=== PATIENT | female | born 1985 | race Caucasian/White ===

== ENCOUNTER → 2017-11-30 | Outpatient (CLI) | payer BC ==
--- NOTE | 2017-11-30 14:59 | USB ---
Reason for exam: clinical finding. Indicated problem(s): pain in the left breast. US Breast LT Left complete breast ultrasound includes all four quadrants, the retroareolar region and axilla. Finding demonstrates no cystic or solid lesion seen. These results were verbally communicated with the patient and result sheet given to the patient on 11/30/17. ASSESSMENT: Negative, BI-RAD 1 RECOMMENDATION: Clinical management of the left breast. Manage patient on a clinical basis.
== END | disposition home or self-care (01) ==
LOC: RADUSWWP 10:04
PROVIDERS: ATTEND Obstetrics & Gynecology
DX: N64.4 Mastodynia (principal)

== ENCOUNTER → 2018-11-12 | Outpatient (CLI) | payer BC ==
--- NOTE | 2018-11-12 11:59 | USB ---
Reason for exam: clinical finding. Indicated problem(s): palpable abnormality in the left breast. Physical Findings: Nurse did not find any significant physical abnormalities on exam. US Breast LT Left complete breast ultrasound includes all four quadrants, the retroareolar region and axilla. Finding demonstrates no cystic or solid lesion seen. No suspicious sonographic finding. These results were verbally communicated with the patient and result sheet given to the patient on 11/12/18. ASSESSMENT: Negative, BI-RAD 1 RECOMMENDATION: Routine screening mammogram of both breasts at age 40. (or sooner if clinically indicated)
== END | disposition home or self-care (01) ==
LOC: RADUSWWP 10:03
PROVIDERS: ATTEND Family Medicine
DX: N60.09 Solitary cyst of unspecified breast (principal)

== ENCOUNTER → 2019-11-05 | Outpatient (CLI) | payer BC ==
--- NOTE | 2019-11-05 07:54 | US ---
EXAMINATION TYPE: US pelvic complete DATE OF EXAM: 11/05/2019 COMPARISON: NONE CLINICAL HISTORY: R19.00 INTRA ABDOMINAL AND PELVIC SWELLING, MASS AND LUMP. increase in vaginal disc harge, TECHNIQUE: TA. Transabdominal sonographic images of the pelvis were acquired. Date of LMP: 10/25/2019 EXAM MEASUREMENTS: Uterus: 10.4 x 4.2 x 4.6 cm Endometrial Stripe: 0.8 cm Right Ovary: 2.9 x 2.1 x 1.4 cm Left Ovary: 3.1 x 2.4 x 2.2 cm 1. Uterus: Anteverted wnl 2. Endometrium: wnl 3. Right Ovary: wnl 4. Left Ovary: wnl 5. Bilateral Adnexa: wnl 6. Posterior cul-de-sac: wnl IMPRESSION: No distinct abnormality appreciated.
--- NOTE | 2019-11-05 07:55 | US ---
EXAMINATION TYPE: US abdomen complete DATE OF EXAM: 11/05/2019 COMPARISON: NONE CLINICAL HISTORY: pain. complaints of increased vaginal discharge, order states abd pain and swelling but patient has no complaints of that. EXAM MEASUREMENTS: Liver Length: 16.0 cm Gallbladder Wall: 0.2 cm CBD: 0.3 cm Spleen: 11.8 cm Right Kidney: 10.6 x 4.7 x 4.2 cm Left Kidney: 10.7 x 4.5 x 4.3 cm Pancreas: wnl Liver: wnl Gallbladder: wnl Evidence for sonographic Irene's sign: no CBD: wnl Spleen: wnl Right Kidney: wnl Left Kidney: wnl Upper IVC: wnl Abd Aorta: wnl The liver is homogenous. The intrahepatic portion of the IVC and proximal abdominal aorta are within normal limits. There is no evidence of cholelithiasis. Common bile duct is unremarkable. The visu alized portions of the pancreas are homogenous. The spleen is unremarkable. Kidneys are symmetric a nd free of hydronephrosis. No renal lesions are seen. IMPRESSION: No distinct abnormality appreciated.
== END | disposition home or self-care (01) ==
LOC: RADUSWWP 07:02
PROVIDERS: ATTEND Family Medicine
DX: R19.00 Intra-abdominal and pelvic swelling, mass and lump, unspecified site (principal)
CPT/HCPCS: 76700; 76856

== ENCOUNTER → 2021-03-17 | Outpatient (CLI) | payer OTHER ==
--- NOTE | 2021-03-17 07:58 | MR ---
EXAMINATION TYPE: MR lumbar spine wo con DATE OF EXAM: 03/17/2021 COMPARISON: NONE HISTORY: Low back pain, pain for 3 years per patient. TECHNIQUE: Multiplanar, multisequence imaging of the lumbar spine is performed without IV contrast. FINDINGS: Sagittal images of the lumbar spine show vertebral body heights and alignment to appear sat isfactory. The intervertebral discs demonstrate normal heights and hydration. The conus medullaris i s normal in position and signal ending inferior L1 level. The bone marrow signal intensity is within normal limits. Axial images show mild facet arthropathy L4-L5 and L5-S1 levels. No significant disc herniation or ne ural foraminal narrowing. Paraspinal muscle bulk is preserved. IMPRESSION: Mild lower lumbar spine facet arthropathy, no significant disc herniation.
== END | disposition home or self-care (01) ==
LOC: RADMRIMAIN 06:21
PROVIDERS: ATTEND Family Medicine
DX: M47.896 Other spondylosis, lumbar region (principal)
CPT/HCPCS: 72148